=== PATIENT | male | born 2000 | race Caucasian/White ===

== ENCOUNTER → 2019-04-14 | Outpatient (REF) | payer SELFPAY ==
[2019-04-14 10:22] LABS: PLATELET COUNT, AUTOMATED 196 K/uL (150-450)
== END ==
LOC: ZZSTITCHES 10:05
PROVIDERS: ATTEND Physician Assistant
DX: R10.31 Right lower quadrant pain (principal); R11.0 Nausea; M54.5 Low back pain
CPT/HCPCS: 82040; 82247; 82310; 82374; 82435; 82565; 82947; 84075; 84132; 84155; 84295; 84450; 84460; 84520; 85025; 86140